=== PATIENT | female | born 1995 | race Caucasian/White ===

== ENCOUNTER 2017-03-01 12:57 | Emergency (ER) | payer OTHER ==
[~2017-03-01] VITALS: Ht 162.6 cm; Wt 75.7 kg
[2017-03-01 15:27] VITALS: BP 118/70
== END 2017-03-01 15:27 | disposition home or self-care (01) ==
LOC: ED 12:57
DX: J02.0 Streptococcal pharyngitis (principal); R51 Headache

== ENCOUNTER 2017-09-13 14:53 | Emergency (ER) | payer OTHER ==
[~2017-09-13] VITALS: Ht 162.6 cm; Wt 79.2 kg
[2017-09-13 17:16] VITALS: BP 127/71
== END 2017-09-13 17:16 | disposition short-term general hospital (02) ==
LOC: ED 14:53
DX: G43.909 Migraine, unspecified, not intractable, without status migrainosus (principal); H52.10 Myopia, unspecified eye
CPT/HCPCS: J3030